=== PATIENT | female | born 1945 | race Two or more races ===

== ENCOUNTER 2025-01-09 21:05 | Inpatient (IN) | payer MEDICARE, BC ==
[~2025-01-09] VITALS: Ht 170.2 cm; Wt 70.8 kg
[2025-01-09 21:54] LABS: PLATELET COUNT (AUTO) 175 K/uL (150-450); RED BLOOD CELL COUNT(AUTO) 3.32 MIL/uL (4.0-5.2); RED CELL DISTRIBUTION WIDTH 14.9 % (11.5-15.0); WHITE BLOOD COUNT (AUTO) 8.8 K/uL (4.3-11.0)
[2025-01-09 21:56] LABS: APPEARANCE,URINE CLEAR (CLEAR); BLOOD, URINE NEGATIVE Ery/uL (NEGATIVE); LEUKOCYTE ESTERASE ,URINE TRACE (NEGATIVE); NITRITE, URINE POSITIVE (NEGATIVE); UGLUCOSE NEGATIVE (NEGATIVE)
[2025-01-09 22:06] LABS: CALCIUM, SERUM 9.0 mg/dL (8.5-10.1); CREATININE 1.4 mg/dL (0.6-1.3); SODIUM SERUM 144 mmol/L (136-145); UREA NITROGEN, BLOOD 46 mg/dL (7-18)
[2025-01-09 22:07] LABS: INR 1.07 (0.91-1.10); SERUM AMMONIA 10 umol/L (11-32)
[2025-01-09 22:13] LABS: ASPARTATE AMINOTRANSFERASE 35 U/L (15-37); TOTAL PROTEIN, SERUM 6.7 g/dL (6.4-8.2)
[2025-01-09 22:19] LABS: ADD URINE CULTURE YES
[2025-01-09] MEDS: VANCOMYCIN 1 GM in IV D5W 250 ML IV ONE (23:00)
[2025-01-09] MEDS ORDERED: CEFEPIME 1 GM VIAL ONE (23:06)
[2025-01-09] MEDS: CEFEPIME 1 GM in IV D5W 50 ML IV ONE (23:10)
[2025-01-10] VITALS: BP 151/71; TEMP 97.9; O2SAT 97
[2025-01-10] MEDS ORDERED: Z GUARD REMEDY 4 OZ OINT TP PRN
[2025-01-10] MEDS ORDERED: ONDANSETRON HCL/PF 4 MG/2 ML VIAL IVP PRN
[2025-01-10] MEDS ORDERED: ACETAMINOPHEN 650 MG/SUPP.RECT RC PRN
[2025-01-10] MEDS ORDERED: DOSING PER PHARMACY-VANCOMYCIN IV XX PRN
[2025-01-10] MEDS ORDERED: VANCOMYCIN 1 GM /D5W 250 ML PB IV ONE (00:15)
[2025-01-10 06:19] VITALS: BP 151/71; TEMP 97.9
[2025-01-10 06:29] LABS: PLATELET COUNT (AUTO) 154 K/uL (150-450); RED BLOOD CELL COUNT(AUTO) 3.16 MIL/uL (4.0-5.2); RED CELL DISTRIBUTION WIDTH 15.4 % (11.5-15.0); WHITE BLOOD COUNT (AUTO) 8.6 K/uL (4.3-11.0)
[2025-01-10 07:25] LABS: CALCIUM, SERUM 9.1 mg/dL (8.5-10.1); CREATININE 1.4 mg/dL (0.6-1.3); PHOSPHORUS 4.2 mg/dL (2.5-4.9); SODIUM SERUM 144.0 mmol/L (136-145); UREA NITROGEN, BLOOD 48.0 mg/dL (7-18)
[2025-01-10 08:00] VITALS: BP 136/66; TEMP 97.9; O2SAT 98
[2025-01-10] MEDS ORDERED: LOPE2CAP PO (08:12)
[2025-01-10] MEDS ORDERED: ENAL20TA18 PO (08:12)
[2025-01-10] MEDS ORDERED: POTA-88 PO (08:12)
[2025-01-10] MEDS ORDERED: ALLO100T25 PO (08:12)
[2025-01-10] MEDS ORDERED: ONDA4TAB11 PO (08:12)
[2025-01-10] MEDS ORDERED: GUAI5LIQ10 PO (08:12)
[2025-01-10] MEDS ORDERED: ACET-73 PO (08:12)
[2025-01-10] MEDS ORDERED: TADA20TA43 PO (08:12)
[2025-01-10] MEDS ORDERED: MACI10TA PO (08:12)
[2025-01-10] MEDS ORDERED: QUET25TA PO ×2 (08:12)
[2025-01-10] MEDS ORDERED: FOLI0.4T6 PO (08:12)
[2025-01-10] MEDS ORDERED: CITA20TA16 PO (08:12)
[2025-01-10] MEDS ORDERED: PSYL2WAF PO (08:12)
[2025-01-10] MEDS ORDERED: TORS20TA3 PO (08:12)
[2025-01-10] MEDS: CEFEPIME 2 GM in IV D5W 100 ML IV SCH (08:56)
[2025-01-10] MEDS: PANTOPRAZOLE 40 MG VIAL IV SCH (08:57)
[2025-01-10] MEDS ORDERED: CEFEPIME 1 GM in IV D5W 50 ML IV SCH (09:00)
[2025-01-10] MEDS: VANCOMYCIN 1 GM in IV D5W 250 ML IV SCH (10:08)
[2025-01-10 16:00] VITALS: BP 122/59; TEMP 97.9; O2SAT 98
[2025-01-10] MEDS: IV D5/ 0.9% NACL 1,000 ML IV PRN (16:49)
[2025-01-10 20:00] VITALS: BP 142/61; TEMP 98.1; O2SAT 95
[2025-01-11 06:55] LABS: PLATELET COUNT (AUTO) 141 K/uL (150-450); RED BLOOD CELL COUNT(AUTO) 2.77 MIL/uL (4.0-5.2); RED CELL DISTRIBUTION WIDTH 15.4 % (11.5-15.0); WHITE BLOOD COUNT (AUTO) 7.0 K/uL (4.3-11.0)
[2025-01-11 07:01] LABS: CREATINE KINASE, TOTAL 19.0 U/L (26-192)
[2025-01-11 07:20] LABS: ASPARTATE AMINOTRANSFERASE 41.0 U/L (15-37); CALCIUM, SERUM 8.9 mg/dL (8.5-10.1); CREATININE 1.0 mg/dL (0.6-1.3); PHOSPHORUS 2.5 mg/dL (2.5-4.9); SODIUM SERUM 143.0 mmol/L (136-145); TOTAL PROTEIN, SERUM 6.1 g/dL (6.4-8.2); UREA NITROGEN, BLOOD 35.0 mg/dL (7-18)
[2025-01-11 08:00] VITALS: BP 156/68; TEMP 97.9; O2SAT 91
[2025-01-11 16:00] VITALS: BP 139/51; TEMP 98.1; O2SAT 97
[2025-01-11 18:50] LABS: CREATININE, URINE 153.1 MG/DL (30.0-125.0); URINE SODIUM, RANDOM 65.0 mmol/l (40-220); URINE TOTAL PROTEIN 109.4 mg/dL (0-11.9)
[2025-01-12 06:07] LABS: PTH, INTACT 47 pg/mL (15-65)
[2025-01-12 06:19] LABS: PLATELET COUNT (AUTO) 132 K/uL (150-450); RED BLOOD CELL COUNT(AUTO) 2.70 MIL/uL (4.0-5.2); RED CELL DISTRIBUTION WIDTH 15.3 % (11.5-15.0); WHITE BLOOD COUNT (AUTO) 6.7 K/uL (4.3-11.0)
[2025-01-12 06:38] LABS: CALCIUM, SERUM 8.8 mg/dL (8.5-10.1); CREATININE 1.0 mg/dL (0.6-1.3); SODIUM SERUM 141.0 mmol/L (136-145); UREA NITROGEN, BLOOD 32.0 mg/dL (7-18)
[2025-01-12 07:30] VITALS: BP 168/55; TEMP 97.7; O2SAT 97
[2025-01-12] MEDS: SULFAMETH/TRIMETH 800/160 MG 1 UDTAB TABLET PO SCH (13:14)
[2025-01-12 16:00] VITALS: BP 162/68; TEMP 97.9; O2SAT 97
[2025-01-12] MEDS: SENNOSIDES/DOCUSATE SODIUM 1 TAB TABLET PO SCH (16:32)
[2025-01-12 21:00] VITALS: BP 141/96; TEMP 97.7; O2SAT 98
[2025-01-12] MEDS: BISACODYL (5 MG) 5 MG TABLET.DR PO SCH (21:12)
[2025-01-13 05:45] VITALS: BP 186/78
[2025-01-13] MEDS: hydrALAZINE HCL IV 20 MG VIAL IV PRN (06:04)
[2025-01-13 07:03] VITALS: BP 156/77
[2025-01-13 07:20] LABS: PLATELET COUNT (AUTO) 166 K/uL (150-450); RED BLOOD CELL COUNT(AUTO) 3.18 MIL/uL (4.0-5.2); RED CELL DISTRIBUTION WIDTH 14.9 % (11.5-15.0); WHITE BLOOD COUNT (AUTO) 7.6 K/uL (4.3-11.0)
[2025-01-13 07:44] LABS: CALCIUM, SERUM 9.3 mg/dL (8.5-10.1); CREATININE 1.0 mg/dL (0.6-1.3); SODIUM SERUM 141.0 mmol/L (136-145); UREA NITROGEN, BLOOD 24.0 mg/dL (7-18)
[2025-01-13 08:00] VITALS: BP 177/76; TEMP 98.6; O2SAT 95
[2025-01-13] MEDS ORDERED: PANTOPRAZOLE 40 MG VIAL IV SCH (09:00)
[2025-01-13] MEDS: PANTOPRAZOLE 40 MG TABLET.DR PO SCH (09:09)
[2025-01-13] MEDS ORDERED: SULF1TAB48 PO (13:15)
== END 2025-01-13 15:55 | disposition home health service (06) | DRG 871 ==
LOC: ER 21:07 → MED 23:54
PROVIDERS: ADMIT Nurse Practitioner Acute Care
DX: A41.9 Sepsis, unspecified organism (principal); G93.41 Metabolic encephalopathy; J15.69 Pneumonia due to other Gram-negative bacteria; N17.0 Acute kidney failure with tubular necrosis; N39.0 Urinary tract infection, site not specified; I13.0 Hypertensive heart and chronic kidney disease with heart failure and stage 1 through stage 4 chronic kidney disease, or unspecified chronic kidney disease; Z16.12 Extended spectrum beta lactamase (ESBL) resistance; D68.59 Other primary thrombophilia; K92.0 Hematemesis; N18.9 Chronic kidney disease, unspecified; I50.9 Heart failure, unspecified; Z88.8 Allergy status to other drugs, medicaments and biological substances; Z87.891 Personal history of nicotine dependence; Z66 Do not resuscitate; B96.89 Other specified bacterial agents as the cause of diseases classified elsewhere; F02.80 Dementia in other diseases classified elsewhere, unspecified severity, without behavioral disturbance, psychotic disturbance, mood disturbance, and anxiety; G30.9 Alzheimer's disease, unspecified; Y95 Nosocomial condition; B96.20 Unspecified Escherichia coli [E. coli] as the cause of diseases classified elsewhere; Z74.09 Other reduced mobility; R73.9 Hyperglycemia, unspecified; D64.9 Anemia, unspecified; M89.8X9 Other specified disorders of bone, unspecified site; Z79.899 Other long term (current) drug therapy; L98.9 Disorder of the skin and subcutaneous tissue, unspecified; C44.529 Squamous cell carcinoma of skin of other part of trunk
CPT/HCPCS: 36415; 70450-TC; 71045-TC; 76700-TC; 80048-TC; 80053-TC; 80076-TC; 80202-TC; 81001; 82140-TC; 82550-TC; 82570-TC; 82962-TC; 83605-TC; 83690-TC; 83735-TC; 83970; 84100-TC; 84155; 84165; 84300-TC; 84443-TC; 84484-TC; 85025-TC; 85730-TC; 87040-TC; 87081-TC; 87086-TC; 87186-TC; 92526; 92611; 97110-TC; 97530-TC; A4223; A6253; A6254; G0378; J0360; J0692; J2470; J3373; J7030; J7042; J7050; J7060